=== PATIENT | female | born 1980 | race Caucasian/White ===

== ENCOUNTER 2016-05-16 08:19 | Emergency (ER) | payer BC ==
[~2016-05-16] VITALS: Ht 167.6 cm; Wt 90.8 kg
[2016-05-16 08:24] VITALS: TEMP 37.5; Ht 167.6 cm; Wt 90.8 kg
[2016-05-16] MEDS ORDERED: SODIUM CHLORIDE 0.9% 1000ML 1,000 ML IV STA ×2 (08:44→12:17)
[2016-05-16] MEDS ORDERED: ONDANSETRON INJ 2 MG/ML 2 ML VIAL IV STA (08:44)
[2016-05-16] MEDS ORDERED: CALC500C70 PO (09:05)
[2016-05-16] MEDS ORDERED: TAMO20TA47 PO (09:05)
[2016-05-16] MEDS ORDERED: PRVC40 PO (09:05)
[2016-05-16] MEDS ORDERED: OPTIRAY 320 IV PRN (09:15)
--- NOTE | 2016-05-16 09:24 | DIAGNOSTIC IMAGING REPORT ---
CHEST ONE VIEW PORTABLE HISTORY: Epigastric abdominal pain COMPARISON: None. FINDINGS: The lungs are clear. Cardiac silhouette is normal in size. No pleural effusions. No pneumothorax. Surgical clips within the left axilla and overlying the left lung base. Cholecystectomy clips are also noted. IMPRESSION: No acute process. Electronically signed by: Hugo Gleason M.D. 05/16/2016 9:23 AM Dictated Date/Time: 05/16/2016 9:22 AM
[2016-05-16 10:10] LABS: BASO % 0.5 %; BASO ABS # 0.05 K/uL (0-0.2); COMPLETE YES; HEMATOCRIT 40.3 % (37-47); IG% 0.1 %; LYMPH % 33.8 %; LYMPH ABS # 3.38 K/uL (1.2-3.4); MEAN CELL VOLUME 85.9 fL (80-100); MEAN CORPUSCULAR HEMOGLOBIN 30.3 pg (25-34); MEAN CORPUSCULAR HGB CONC 35.2 g/dl (32-36); MEAN PLATELET VOLUME 9.1 fL (7.4-10.4); NEUT % 60.6 %; PLATELET COUNT 256 K/uL (130-400); RED BLOOD COUNT 4.69 M/uL (4.2-5.4); WHITE BLOOD COUNT 9.99 K/uL (4.8-10.8)
[2016-05-16 10:29] LABS: ALKALINE PHOSPHATASE 57 U/L (45-117); ALT/SGPT 23 U/L (12-78); AMYLASE 48 U/L (25-115); BLOOD UREA NITROGEN 12 mg/dl (7-18); BUN/CREATININE RATIO 12.5 (10-20); CALCIUM 9.1 mg/dl (8.5-10.1); CARBON DIOXIDE 26 mmol/L (21-32); CHLORIDE 108 mmol/L (98-107); CREATININE 0.95 mg/dl (0.60-1.20); GLUCOSE 91 mg/dl (70-99); SODIUM 140 mmol/L (136-145)
[2016-05-16 10:57] LABS: PREG INTERNAL NEGATIVE QC NEG CLEAR BACKGROUND; PREG INTERNAL POSITIVE QC POS CONTROL LINE
[2016-05-16 11:08] LABS: POTASSIUM 4.1 mmol/L (3.5-5.1)
[2016-05-16 11:11] LABS: URINE APPEARANCE CLOUDY (CLEAR); URINE BILIRUBIN NEG (NEG); URINE COLOR YELLOW; URINE EPITHELIAL CELL AUTO >30 /lpf (0-5); URINE NITRITE NEG (NEG); URINE PH 6.5 (4.5-7.5); URINE SPECIFIC GRAVITY 1.009 (1.000-1.030); UROBILINOGEN NEG (NEG); ZZUR CULT IF INDIC CLEAN CATCH YES
[2016-05-16 11:13] LABS: MANUAL MICROSCOPIC REQUIRED? NO; REVIEW REQ? NO
--- NOTE | 2016-05-16 11:54 | DIAGNOSTIC IMAGING REPORT ---
ABDOMINAL ULTRASOUND, RIGHT UPPER QUADRANT HISTORY: Epigastric abdominal pain, hx cholecystectomy. COMPARISON: None. FINDINGS: Pancreas: The pancreatic tail is obscured by overlying bowel gas. The remaining portions of the pancreas are within normal limits. Liver: Unremarkable. Gallbladder: The gallbladder is surgically absent. CBD: 8 mm. This is within normal limits given the patient's postcholecystectomy state. Right kidney: No hydronephrosis. IMPRESSION: No significant abnormality identified within the right upper quadrant. Cholecystectomy. Electronically signed by: Hugo Gleason M.D. 05/16/2016 11:53 AM Dictated Date/Time: 05/16/2016 11:52 AM
--- NOTE | 2016-05-16 12:26 | DIAGNOSTIC IMAGING REPORT ---
CT HEAD WITHOUT CONTRAST (CT) CLINICAL HISTORY: Worsening severe headache COMPARISON STUDY: No previous studies for comparison. TECHNIQUE: Axial CT of the brain is performed from the vertex to the skull base. IV contrast was not administered for this examination. CT DOSE: 720.95 mGycm FINDINGS: No intra or extra-axial mass lesions are visualized. There is no CT evidence of acute cortical infarction. There is no evidence of midline shift. There is no acute hemorrhage. No calvarial fractures are visualized. There is no evidence of pathologic ventricular dilatation. There is no evidence of acute sinusitis IMPRESSION: Normal noncontrast head CT. Electronically signed by: Antoine Cleveland M.D. 05/16/2016 12:24 PM Dictated Date/Time: 05/16/2016 12:23 PM
--- NOTE | 2016-05-16 12:42 | DIAGNOSTIC IMAGING REPORT ---
ABDOMEN AND PELVIS CT WITH IV AND ORAL CONTRAST CT DOSE: 802.99 mGycm HISTORY: Epigastric abdominal pain, periumbilical pain TECHNIQUE: Multiaxial CT images of the abdomen and pelvis were performed following the use of intravenous and oral contrast. COMPARISON STUDY: None. FINDINGS: Mild dependent changes seen at the lung bases. No pneumoperitoneum. No pneumatosis. No suspicious lytic or blastic osseous lesions. Evidence for prior left breast reconstruction. Cholecystectomy. The liver, spleen, adrenal glands, pancreas, and kidneys are within normal limits. 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 No hydronephrosis. No retroperitoneal lymphadenopathy. A few prominent mesenteric lymph nodes. Postoperative changes within the anterior abdominal wall. Small fat-containing umbilical hernia. The bladder, uterus, and ovaries are unremarkable. No bowel wall thickening or obstruction. Normal appendix. IMPRESSION: 1. No bowel wall thickening or obstruction. 2. Normal appendix. 3. Postoperative changes as described above. 4. Small fat-containing umbilical hernia. 5. A few prominent mesenteric lymph nodes. These are of uncertain clinical significance. Electronically signed by: Hugo Gleason M.D. 05/16/2016 12:41 PM Dictated Date/Time: 05/16/2016 12:24 PM
[2016-05-16] MEDS ORDERED: KETOROLAC TROMETHAMINE 30 MG/ML VIAL IV STA (13:31)
[2016-05-16] MEDS ORDERED: DiphenhydrAMINE HCL 50 MG/ML VIAL IV STA (13:31)
[2016-05-16] MEDS ORDERED: PROCHLORPERAZINE 5 MG/ML 2 ML VIAL IV STA (13:31)
--- NOTE | 2016-05-16 14:55 | EMERGENCY ROOM VISIT NOTE ---
History First contact with patient: 08:33 Chief Complaint: ABDOMINAL PAIN Stated Complaint: HEADACHE, PAIN IN STOMACH, FEVER Nursing Triage Summary: pt reports headache and abd pain started yesterday took motrin yesterday nothing today. has been getting hot and cold flashes. unsure if temp. pt is here for conference from out of town. denies nay diarrhea or constipation. pt reports having gallbladder removed in past. History of Present Illness The patient is a 36 year old female who presents to the Emergency Room via private vehicle with complaints of "headache, pain in stomach, fever". The patient states that she began yesterday morning of a generalized onset headache that she rates now as an 8/10. She states that it is gradually worsening. She states that in addition to that she also developed abdominal pain in the epigastric region. She notes the pain continues to stay in the epigastric region and is associated with nausea and is worse with movement of which she rates as a 0/10. She states that at rest there is minimal discomfort. She states that she is visiting the area for a conference. She states that she does not have her gallbladder anymore as this was removed. She notes she does have a history of breast cancer. She has been taking Motrin yesterday but nothing today without relief of her pain. There is associated nausea, fevers, chills. She denies any trouble with bowel movements. She denies any vomiting, chest pain, shortness of breath, urinary symptoms,, recent trauma, history of IL , history PE, chance of . Review of Systems A complete 10-point Review of Systems was discussed with the patient, with pertinent positives and negatives listed in the History of Present Illness. All remaining Review of Systems questions can be considered negative unless otherwise specified. Past Medical/Surgical History Cholecystectomy, breast cancer Family History Diabetes, heart disease, high blood pressure, cancer, kidney disease or stones. Social History Smoking Status: Never Smoker Social History: Patient is currently employed. Current/Historical Medications Scheduled Calcium/Vitamin D (Os-Tony 500 Plus D), 1 TAB PO HS Pravastatin Sod (Pravastatin Sodium), 80 MG PO HS Tamoxifen (Nolvadex), 20 MG PO HS Allergies Coded Allergies: No Known Allergies (Unverified , 05/16/16) Physical Exam Vital Signs Date Time Temp Pulse Resp B/P Pulse Ox O2 Delivery O2 Flow Rate FiO2 05/16/16 14:58 103 18 120/71 94 Room Air 05/16/16 13:42 89 18 118/81 99 Room Air 05/16/16 12:03 144/89 05/16/16 11:55 93 18 143/87 95 Room Air 05/16/16 10:08 99 18 135/97 96 Room Air 05/16/16 08:24 37.5 127 18 138/85 94 Room Air Pain Rating (0-10): 8.0 Physical Exam VITAL SIGNS - Vital signs and nursing notes were reviewed. Patient is afebrile , normotensive, slightly tachycardic at a rate of 127 bpm, and is saturating well on room air 94%. GENERAL -36-year-old female appearing her stated age who is in no acute distress. She is nontoxic in appearance. Communicates well with provider and answers questions appropriately. SKIN - Without rashes. No petechial rashes. HEAD - NC/AT. EYES - PERRL with EOMI bilaterally. Sclera anicteric. Palpebral conjunctiva pink and moist with no injection noted. EARS - No deformities of external structures noted on gross examination bilaterally. No pain elicited with palpation of the tragus bilaterally. External auditory canals without discharge or otorrhea. Tympanic membranes pearly shirley without retraction or bulging. No fluid or purulent material visualized behind the TM. Handle of malleus, umbo, cone of light, pars tensa/ flaccid all easily visualized. NOSE - Midline and without cyanosis. No epistaxis or purulent drainage noted. Septum midline without deviation or septal hematoma noted. MOUTH/OROPHARYNX - Without perioral cyanosis. Buccal mucosa pink and moist and without leukoplakia. Tongue midline with equal elevation of palate bilaterally. No tonsillar hypertrophy, erythema, or exudates noted. Fair dentition noted. NECK - Neck with FROM. Supple to palpation. No lymphadenopathy noted. No nuchal rigidity. No meningismus signs of encephalitis. LUNGS - Chest wall symmetric without accessory muscle use, intercostals retractions, or central cyanosis. Normal vesicular breath sounds CTA B/L. No wheezes, rales, or rhonchi appreciated. CARDIAC - RRR with S1/S2. No murmur, rubs, or gallops appreciated. No chest tenderness. ABDOMEN - Abdominal contour without pulsations or visible masses. BS normoactive all four quadrants. There is pinpoint tenderness in the epigastric region. No palpable masses, hepatosplenomegaly, or ascites noted. EXTREMITIES - No clubbing or peripheral cyanosis. No pretibial edema present. +3 /5 radial, posterior tibial, and dorsalis pedis pulses palpated throughout. +5/ 5 strength noted in UE/LE bilaterally. NEUROLOGIC - Cranial nerves II through XII grossly intact. Sensory intact to light touch throughout. PSYCH -Pt is very pleasant and interacts well with examiner. Medical Decision & Procedures ER Provider Diagnostic Interpretation: CT HEAD WITHOUT CONTRAST (CT) CLINICAL HISTORY: Worsening severe headache COMPARISON STUDY: No previous studies for comparison. TECHNIQUE: Axial CT of the brain is performed from the vertex to the skull base. IV contrast was not administered for this examination. CT DOSE: 720.95 mGycm FINDINGS: No intra or extra-axial mass lesions are visualized. There is no CT evidence of acute cortical infarction. There is no evidence of midline shift. There is no acute hemorrhage. No calvarial fractures are visualized. There is no evidence of pathologic ventricular dilatation. There is no evidence of acute sinusitis IMPRESSION: Normal noncontrast head CT. Electronically signed by: Antoine Cleveland M.D. 05/16/2016 12:24 PM Dictated Date/Time: 05/16/2016 12:23 PM CHEST ONE VIEW PORTABLE HISTORY: Epigastric abdominal pain COMPARISON: None. FINDINGS: The lungs are clear. Cardiac silhouette is normal in size. No pleural effusions. No pneumothorax. Surgical clips within the left axilla and overlying the left lung base. Cholecystectomy clips are also noted. IMPRESSION: No acute process. Electronically signed by: Hugo Gleason M.D. 05/16/2016 9:23 AM Dictated Date/Time: 05/16/2016 9:22 AM ABDOMEN AND PELVIS CT WITH IV AND ORAL CONTRAST CT DOSE: 802.99 mGycm HISTORY: Epigastric abdominal pain, periumbilical pain TECHNIQUE: Multiaxial CT images of the abdomen and pelvis were performed following the use of intravenous and oral contrast. COMPARISON STUDY: None. FINDINGS: Mild dependent changes seen at the lung bases. No pneumoperitoneum. No pneumatosis. No suspicious lytic or blastic osseous lesions. Evidence for prior left breast reconstruction. Cholecystectomy. The liver, spleen, adrenal glands, pancreas, and kidneys are within normal limits. 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 No hydronephrosis. No retroperitoneal lymphadenopathy. A few prominent mesenteric lymph nodes. Postoperative changes within the anterior abdominal wall. Small fat-containing umbilical hernia. The bladder, uterus, and ovaries are unremarkable. No bowel wall thickening or obstruction. Normal appendix. IMPRESSION: 1. No bowel wall thickening or obstruction. 2. Normal appendix. 3. Postoperative changes as described above. 4. Small fat-containing umbilical hernia. 5. A few prominent mesenteric lymph nodes. These are of uncertain clinical significance. Electronically signed by: Hugo Gleason M.D. 05/16/2016 12:41 PM Dictated Date/Time: 05/16/2016 12:24 PM ABDOMINAL ULTRASOUND, RIGHT UPPER QUADRANT HISTORY: Epigastric abdominal pain, hx cholecystectomy. COMPARISON: None. FINDINGS: Pancreas: The pancreatic tail is obscured by overlying bowel gas. The remaining portions of the pancreas are within normal limits. Liver: Unremarkable. Gallbladder: The gallbladder is surgically absent. CBD: 8 mm. This is within normal limits given the patient's postcholecystectomy state. Right kidney: No hydronephrosis. IMPRESSION: No significant abnormality identified within the right upper quadrant. Cholecystectomy. Electronically signed by: uHgo Gleason M.D. 05/16/2016 11:53 AM Dictated Date/Time: 05/16/2016 11:52 AM Laboratory Results 05/16/16 10:00 Red Blood Count 4.69, Mean Corpuscular Volume 85.9, Mean Corpuscular Hemoglobin 30.3, Mean Corpuscular Hemoglobin Concent 35.2, Mean Platelet Volume 9.1, Neutrophils (%) (Auto) 60.6, Lymphocytes (%) (Auto) 33.8, Monocytes (%) (Auto) 4.0, Eosinophils (%) (Auto) 1.0, Basophils (%) (Auto) 0.5, Neutrophils # (Auto) 6.05, Lymphocytes # (Auto) 3.38, Monocytes # (Auto) 0.40, Eosinophils # (Auto) 0.10, Basophils # (Auto) 0.05 05/16/16 09:30 05/16/16 10:00 Test 05/16/16 09:05 05/16/16 09:30 05/16/16 09:35 05/16/16 10:00 Influenza Type A Antigen Neg for Influ A (NEG) Influenza Type B Antigen Neg for Influ B (NEG) Anion Gap 6.0 mmol/L (3-11) Est Creatinine Clear Calc Drug Dose 92.9 ml/min Estimated GFR () 89.3 Estimated GFR (Non- 77.1 BUN/Creatinine Ratio 12.5 (10-20) Calcium Level 9.1 mg/dl (8.5-10.1) Total Bilirubin 0.5 mg/dl (0.2-1) Alanine Aminotransferase (ALT/SGPT) 23 U/L (12-78) Alkaline Phosphatase 57 U/L (45-117) Total Protein 7.4 gm/dl (6.4-8.2) Albumin 3.7 gm/dl (3.4-5.0) Globulin 3.7 gm/dl (2.5-4.0) Albumin/Globulin Ratio 1.0 (0.9-2) Amylase Level 48 U/L (25-115) Lipase 108 U/L (73-393) Bedside Lactic Acid Venous 1.49 mmol/L (0.90-1.70) White Blood Count 9.99 K/uL (4.8-10.8) Red Blood Count 4.69 M/uL (4.2-5.4) Hemoglobin 14.2 g/dL (12.0-16.0) Hematocrit 40.3 % (37-47) Mean Corpuscular Volume 85.9 fL (80-100) Mean Corpuscular Hemoglobin 30.3 pg (25-34) Mean Corpuscular Hemoglobin Concent 35.2 g/dl (32-36) Platelet Count 256 K/uL (130-400) Mean Platelet Volume 9.1 fL (7.4-10.4) Neutrophils (%) (Auto) 60.6 % Lymphocytes (%) (Auto) 33.8 % Monocytes (%) (Auto) 4.0 % Eosinophils (%) (Auto) 1.0 % Basophils (%) (Auto) 0.5 % Neutrophils # (Auto) 6.05 K/uL (1.4-6.5) Lymphocytes # (Auto) 3.38 K/uL (1.2-3.4) Monocytes # (Auto) 0.40 K/uL (0.11-0.59) Eosinophils # (Auto) 0.10 K/uL (0-0.5) Basophils # (Auto) 0.05 K/uL (0-0.2) RDW Standard Deviation 40.4 fL (36.4-46.3) RDW Coefficient of Variation 12.9 % (11.5-14.5) Immature Granulocyte % (Auto) 0.1 % Immature Granulocyte # (Auto) 0.01 K/uL (0.00-0.02) Aspartate Amino Transf (AST/SGOT) 16 U/L (15-37) Troponin I < 0.015 ng/ml (0-0.045) Human Chorionic Gonadotropin, Qual NEG (NEG) Test 05/16/16 11:00 Urine Color YELLOW Urine Appearance CLOUDY (CLEAR) Urine pH 6.5 (4.5-7.5) Urine Specific Bowman 1.009 (1.000-1.030) Urine Protein NEG (NEG) Urine Glucose (UA) NEG (NEG) Urine Ketones NEG (NEG) Urine Occult Blood 2+ (NEG) Urine Nitrite NEG (NEG) Urine Bilirubin NEG (NEG) Urine Urobilinogen NEG (NEG) Urine Leukocyte Esterase TRACE (NEG) Urine WBC (Auto) 5-10 /hpf (0-5) Urine RBC (Auto) 10-30 /hpf (0-4) Urine Hyaline Casts (Auto) 1-5 /lpf (0-5) Urine Epithelial Cells (Auto) >30 /lpf (0-5) Urine Bacteria (Auto) 2+ (NEG) Medications Administered Medications (Trade) Dose Ordered Sig/Jose Route Start Time Stop Time Status Last Admin Dose Admin Sodium Chloride (Nss 1000ml) 1,000 ml @ 999 mls/hr Q1H1M STAT IV 05/16/16 08:44 05/16/16 09:44 DC 05/16/16 10:10 999 MLS/HR Ondansetron HCl 4 mg 4 mg NOW STAT IV 05/16/16 08:44 05/16/16 08:48 DC 05/16/16 10:14 4 MG Sodium Chloride (Nss 1000ml) 1,000 ml @ 200 mls/hr Q5H STAT IV 05/16/16 12:17 05/16/16 15:49 DC 05/16/16 12:24 200 MLS/HR Ketorolac Tromethamine (Toradol Inj) 30 mg NOW STAT IV 05/16/16 13:31 05/16/16 13:32 DC 05/16/16 13:44 30 MG Diphenhydramine HCl (Benadryl Inj) 25 mg NOW STAT IV 05/16/16 13:31 05/16/16 13:32 DC 05/16/16 13:44 25 MG Prochlorperazine Edisylate (Compazine Inj) 10 mg NOW STAT IV 05/16/16 13:31 05/16/16 13:32 DC 05/16/16 13:44 10 MG Medical Decision The patient was seen and evaluated as above. After obtaining a thorough history and physical examination IV access was initiated and the above workup was performed. I was initially concerned for acute emergent process infectious jacobson therefore blood cultures and point care lactic was initiated. She was hydrated with 1 L of normal saline, and provided with Zofran for her nausea. A stat 1 view portable was obtained to evaluate for free air. No free air was noted. The patient did not want any for pain initially. She was well-appearing , but did note that she had the worse headache of her life and severe epigastric abdominal pain. Chest x-ray results as above. I did discuss with the patient benefits versus risk of obtaining CT scan of the head and abdomen and pelvis and it was decided that she would begin drinking contrast which would take 2 hours, and in the meantime we would obtain an ultrasound of the right upper quadrant. Right upper quadrant ultrasound was obtained and revealed no acute process. Patient's laboratory studies revealed CBC with no acute process, PRP which was essentially unremarkable, point care lactic which was unremarkable, negative troponin, negative hCG, within normal limits pancreatic enzymes no evidence of liver inflammation or kidney failure, a slightly elevated chloride at 108 but otherwise unremarkable. Urine did reveal 2+ occult blood trace of leukocyte esterase, 5-10 white blood cells, 10-30 red blood cells, greater than 30 epithelial cells and 2+ urine bacteria. Without nitrates I do not believe that this is likely a UTI special because the patient has no urinary symptoms. I will await culture. Patient was negative for the flu. A thorough discussion was then had with the patient regarding benefits versus risk of obtaining CT scan of the head, abdomen and pelvis. She ultimately requested these. These were obtained. Results as above. No acute findings. The findings were discussed with the patient. She then notes that her headache worsened, and was provided with Toradol, Benadryl, Compazine. She was reevaluated noted to be feeling much better. There was also a male present in the room after about half of the patient's stay. The patient, the male and I discussed results, and it is believed that the patient is ready for discharge. I do not suspect any acute process at this time articulate given the above labs, and the patient's good response to the medication. She was educated upon follow-up as soon as possible with her family doctor or return for worsening. She was educated upon today's findings, was educated upon worrisome symptoms in which to return, had questions as per the discharge, and was discharged home in good condition. Patient's EKG revealed sinus tachycardia, rate of 105 bpm without ectopy or ischemic change. I do not suspect meningitis or encephalitis however given the negative workup and the patient's worsening headache I did offer a lumbar puncture both in the beginning of her stay and at the end of the stay. She ultimately declined lumbar puncture. In the evaluation and treatment of this patient the following differential diagnoses were entertained: IL, PE, gastritis, Sneha-Black tear, pancreatitis , acute intra-abdominal process, abscess, subarachnoid hemorrhage, meningitis, encephalitis, viral process, among others. Impression Primary Impression: Headache Additional Impression: Epigastric abdominal pain Departure Information Dispostion Home / Self-Care Condition GOOD Referrals No Doctor, Assigned (PCP) Patient Instructions [facility] Additional Instructions You have been treated in the Emergency Department for a Headache and Abdominal pain. You have received pain medicine in the emergency department which impairs your ability to operate a vehicle. It is illegal for you to drive after receiving these medicines. For pain control, you can use the following [id number] medicines (if >12 yo): - Regular strength (325mg/tab) Tylenol (acetaminophen) 2 tabs every 4-6 hours as needed. Do not exceed 12 tablets in a 24 hour period. Avoid taking more than 3 grams (3000 mg) of Tylenol per day. This includes any other sources of acetaminophen you may take on a regular basis. - Regular strength (200 mg/tab) Advil (ibuprofen) 1-2 tabs every 4-6 hours as needed. Do not exceed a dose of 3200 mg per day. You should relax in a quiet, dark place for the rest of the day. Avoid any possible triggers including: cigarette smoke, caffeine, nicotine, chocolate, wine, beer, loud noises or music, or bright lights. You should schedule a follow-up appointment in 1-2 days with your Primary Care Provider or established Neurologist for further evaluation and treatment of your Headache. Imaging has helped exclude emergent causes of your abdominal pain. There were prominent mesenteric lymph nodes noted. Please follow-up with your family doctor regarding this by calling them as soon as possible to schedule follow-up. She is also to follow up for the small fat-containing umbilical hernia. Return to the Emergency Department if your current symptoms worsen despite treatment course outlined above, or if you develop any of the following symptoms : intractable pain despite aforementioned treatment course, visual disturbances , loss of vision, unilateral weakness or facial drooping, slurring of speech, loss of coordination, or loss of consciousness. Please return to emergency department with any new/concerning symptoms. Problem Qualifiers
[2016-05-16 14:58] VITALS: BP 120/71; PULSE 103; O2SAT 94
== END 2016-05-16 15:05 | disposition home or self-care (01) ==
LOC: C.EDB 08:22
DX: R51 Headache (principal); R10.13 Epigastric pain; Z90.49 Acquired absence of other specified parts of digestive tract; Z85.3 Personal history of malignant neoplasm of breast